=== PATIENT | female | born 1985 | race Caucasian/White ===

== ENCOUNTER 2020-07-29 18:11 | Emergency (ER) | payer MEDICAID ==
[~2020-07-29] VITALS: Ht 152.4 cm; Wt 122.5 kg
[2020-07-29 18:33] VITALS: BP 157/74
--- NOTE | 2020-07-29 18:51 | NUR ---
34YO F PRESENTS TO ED WITH MILD VAGINAL BLEEDING X 1 DAY. PER PT, TEST POSITIVE 3X. NO CONSULT WITH OBGYNE DONE AT THIS TIME. DENIES PAIN. DENIES ABDOMINAL CRAMPING. DENIES ANY URINARY SYMPTOMS. IN ED, VSS. CLEAR BREATH SOUNDS. ABDOMEN SOFT, NON TENDER. PT POSITIONED COMFORTABLY IN BED. ERMD MADE AWARE OF PT STATUS. PMH: NONE MEDS: PEÑA NKA
--- NOTE | 2020-07-29 19:14 | NUR ---
RECIEVED REPORT FROM VIKRAM MCCRAY. CONTINUATION OF CARE.
[2020-07-29 19:19] LABS: BASOPHILS # (AUTO) 0.1 K/uL (0.00-0.22); BASOPHILS % (AUTO) 1.1 % (0.0-2.0); EOSINOPHILS # (AUTO) 0.1 K/uL (0-0.4); EOSINOPHILS % (AUTO) 1.1 % (0.0-4.0); HEMOGLOBIN 9.8 g/dL (12.0-16.0); LYMPHOCYTES # (AUTO) 2.8 K/uL (2.5-16.5); LYMPHOCYTES % (AUTO) 28.3 % (20.5-51.1); MEAN CORPUSCULAR HEMOGLOBIN 23 pg (27-31); MEAN CORPUSCULAR HGB CONC 32 g/dL (33-37); MEAN CORPUSCULAR VOLUME 73.2 fL (80-94); MONOCYTES # (AUTO) 0.5 K/uL (0.8-1.0); MONOCYTES % (AUTO) 5.1 % (1.7-9.3); NEUTROPHILS # (AUTO) 6.5 K/uL (1.8-7.7); NEUTROPHILS % (AUTO) 64.4 % (42.2-75.2); PLATELET COUNT (AUTO) 632 K/uL (140-450); RED BLOOD CELL COUNT(AUTO) 4.23 MIL/uL (4.20-5.40); RED CELL DISTRIBUTION WIDTH 18.6 % (11.6-13.7); WHITE BLOOD COUNT (AUTO) 10.1 K/uL (4.8-10.8)
[2020-07-29 19:22] LABS: APPEARANCE,URINE CLEAR (CLEAR); BILIRUBIN,URINE NEGATIVE (NEGATIVE); BLOOD, URINE 2+ (NEGATIVE); COLOR,URINE YELLOW (YELLOW); LEUKOCYTE ESTERASE ,URINE NEGATIVE (NEGATIVE); NITRITE, URINE NEGATIVE (NEGATIVE); UGLUCOSE NEGATIVE (NEGATIVE)
--- NOTE | 2020-07-29 19:26 | NUR ---
US AT BEDSIDE.
[2020-07-29 19:37] LABS: PROTHROMBIN TIME 9.5 secs (10.8-13.4)
--- NOTE | 2020-07-29 20:22 | NUR ---
PATIENT A&O X 4. DENIES PAIN AT THIS TIME. VSS.
[2020-07-29 20:23] LABS: RBC,URINE 11-20 (MOD) /HPF (0-5); WBC,URINE 0-5 /HPF (0-5)
[2020-07-29 21:40] VITALS: BP 142/78
--- NOTE | 2020-07-29 21:40 | NUR ---
Patient discharged with v/s stable. Written and verbal after care instructions given and explained. Patient verbalized understanding. Ambulatory with steady gait. Advised to follow up with PMD OR OBGYN by ERMD. Patient left without signing D/C paperwork.
== END 2020-07-29 21:40 | disposition home or self-care (01) ==
LOC: MED 18:11
DX: O03.9 Complete or unspecified spontaneous abortion without complication (principal); Z3A.01 Less than 8 weeks gestation of pregnancy
CPT/HCPCS: 36415; 76801; 81001; 81025; 84702; 85025; 85610; 85730; 86886; 86900; 86901; 99284

== ENCOUNTER 2020-07-30 10:21 | Emergency (ER) | payer MEDICAID ==
[~2020-07-30] VITALS: Ht 152.4 cm; Wt 120.8 kg
[2020-07-30 10:25] VITALS: BP 113/64
--- NOTE | 2020-07-30 10:32 | NUR ---
PATIENT AMBULATED TO BED 11.
--- NOTE | 2020-07-30 10:35 | NUR ---
34 y/o F brought in from home with c/c vaginal bleeding. Patient presents A&Ox4, ambulatory and states she was seen here on 07/29/20 and advised to come back for worsening symptoms. Patient reports vaginal bleeding since yesterday "spotting." Today, patient reports satureated pads <4 hours. Patient states saturated pad of bright red blood, denies any clotting; reports it feels like a heavy menstraul flow. Patient states and is 5 weeks 5 days . Patient denies any pain with bleeding; denies any vaginal discharge, fever/chills, N/V/D, SOB, chest pain, abdominal/back pain. Last BM this morning; normal/semi-formed/brown; LMP 06/20/2020. Pt placed onto gown, cardiac monitor technician. Bed locked in lowest position, side rails x 1, call light in reach. PMH/Sx/Meds: Denies NKA
--- NOTE | 2020-07-30 10:36 | NUR ---
Patient ambulated to restroom with steady/even gait. Urine sample collected.
--- NOTE | 2020-07-30 10:50 | NUR ---
Urine sample handed to CPT Bruno at ER bedside.
--- NOTE | 2020-07-30 10:52 | NUR ---
Lab at bedside
--- NOTE | 2020-07-30 11:24 | NUR ---
Dr. Hunter is evaluating the patient at bedside.
--- NOTE | 2020-07-30 11:33 | NUR ---
Dr. Hunter is reevaluating patient at bedside.
[2020-07-30 11:45] VITALS: BP 113/64
--- NOTE | 2020-07-30 11:45 | NUR ---
Patient discharged with v/s stable. Written and verbal after care instructions given and explained. Patient verbalized understanding. Ambulatory with steady gait. All questions addressed prior to discharge. Advised to follow up with PMD.
== END 2020-07-30 11:45 | disposition home or self-care (01) ==
LOC: MED 10:21
DX: O03.9 Complete or unspecified spontaneous abortion without complication (principal); Z3A.01 Less than 8 weeks gestation of pregnancy
CPT/HCPCS: 36415; 81002; 81025; 84702; 99283

== ENCOUNTER 2020-08-02 14:06 | Emergency (ER) | payer MEDICAID ==
[~2020-08-02] VITALS: Ht 152.4 cm; Wt 119.7 kg
[2020-08-02 14:11] VITALS: BP 163/87
--- NOTE | 2020-08-02 14:19 | NUR ---
34/F presents to ED with c/o vaginal bleeding since Saturday. Patient states she was seen here on Saturday and was told she was having a miscarriage. Patient was advised if the bleeding did not slow down by today to return to be evaluated. Patient states she had 10/10 abdominal cramping this morning and that she took Tylenol with relief. Patient denies pain, nausea/vomiting, dysuria. LMP 06/20/20.
--- NOTE | 2020-08-02 14:20 | NUR ---
PATIENT AMBULATED TO BED 12.
--- NOTE | 2020-08-02 14:52 | NUR ---
Ultrasound at bedside
--- NOTE | 2020-08-02 14:52 | NUR ---
Lab at bedside
[2020-08-02 15:05] LABS: BASOPHILS # (AUTO) 0.1 K/uL (0.00-0.22); BASOPHILS % (AUTO) 0.6 % (0.0-2.0); EOSINOPHILS # (AUTO) 0.1 K/uL (0-0.4); HEMATOCRIT 31.9 % (36-48); HEMOGLOBIN 10.2 g/dL (12.0-16.0); LYMPHOCYTES # (AUTO) 2.6 K/uL (2.5-16.5); LYMPHOCYTES % (AUTO) 24.3 % (20.5-51.1); MEAN CORPUSCULAR HEMOGLOBIN 24 pg (27-31); MEAN CORPUSCULAR HGB CONC 32 g/dL (33-37); MEAN CORPUSCULAR VOLUME 73.4 fL (80-94); MONOCYTES # (AUTO) 0.6 K/uL (0.8-1.0); MONOCYTES % (AUTO) 5.3 % (1.7-9.3); NEUTROPHILS # (AUTO) 7.2 K/uL (1.8-7.7); NEUTROPHILS % (AUTO) 68.8 % (42.2-75.2); PLATELET COUNT (AUTO) 585 K/uL (140-450); RED BLOOD CELL COUNT(AUTO) 4.34 MIL/uL (4.20-5.40); RED CELL DISTRIBUTION WIDTH 18.2 % (11.6-13.7); WHITE BLOOD COUNT (AUTO) 10.5 K/uL (4.8-10.8)
[2020-08-02 15:28] LABS: APPEARANCE,URINE CLEAR (CLEAR); BILIRUBIN,URINE NEGATIVE (NEGATIVE); BLOOD, URINE 3+ (NEGATIVE); COLOR,URINE YELLOW (YELLOW); LEUKOCYTE ESTERASE ,URINE NEGATIVE (NEGATIVE); NITRITE, URINE NEGATIVE (NEGATIVE); PH,URINE 6.5 (5.0-9.0); UGLUCOSE NEGATIVE (NEGATIVE)
[2020-08-02 15:48] LABS: RBC,URINE 50-80 /HPF (0-5); WBC,URINE 0-5 /HPF (0-5)
--- NOTE | 2020-08-02 16:00 | NUR ---
Patient resting in room, awaiting ultrasound results
[2020-08-02] MEDS ORDERED: MEDR10TA PO (17:37)
[2020-08-02 17:57] VITALS: BP 155/80
--- NOTE | 2020-08-02 17:57 | NUR ---
Patient discharged with v/s stable. Written and verbal after care instructions given and explained. Patient alert, oriented and verbalized understanding of instructions. Ambulatory with steady gait. All questions addressed prior to discharge. ID band removed. Patient advised to follow up with PMD. List of OBGYN's for follow up. Rx of Medroxprogesterone Acetate given. Lab results given as well for follow up. Patient educated on indication of medication including possible reaction and side effects. Opportunity to ask questions provided and answered.
== END 2020-08-02 17:57 | disposition home or self-care (01) ==
LOC: MED 14:06
DX: O03.9 Complete or unspecified spontaneous abortion without complication (principal)
CPT/HCPCS: 36415; 76817; 81001; 81025; 84702; 85025; 86900; 86901; 99284